=== PATIENT | female | born 1940 | race Caucasian/White ===

== ENCOUNTER 2020-04-24 01:31 | Emergency (ER) | payer OTHER ==
[~2020-04-24] VITALS: Ht 152.4 cm; Wt 71.2 kg
[~2020-04-24 01:31] MED LIST: CETI1TAB2 PO
[2020-04-24 01:32] VITALS: BP_SYST 160
--- NOTE | 2020-04-24 02:09 | NUR ---
PT BROUGHT IN BY SELF. PT STATES THAT SHE WOKE UP APPROX 20 MINUTES PRIOR TO COMING INTO ER WITH SWOLLEN TONGUE. PT STATES THAT LEFT SIDE OF TONGUE IS SWOLLEN AND CAUSES MILD PAIN. PT STATES THAT SHE HAS HAD MULTIPLE EPISODES IN HER LIFE, WITH THE LAST EPISODE BEING APPROX 4 YEARS AGO. PT STATES THAT LAST TIME SHE WAS GIVEN BENADRYL AND EPINEPHRINE, WAITED A FEW HOURS AND WENT HOME. NO BLEEDING, AIRWAY IS PATENT, NO DROOLING, NO FACIAL ASYMMETRY. PT DENIES SOB, CHEST PAIN, ANY OTHER MEDICAL COMPLAINT AT THIS TIME.
--- NOTE | 2020-04-24 02:09 | NUR ---
PT PLACED INTO HALLWAY BED 2, REPORT GIVEN TO JADE SHEARER. ALL CARE ENDORSED. SIDE RAILS UP.
--- NOTE | 2020-04-24 02:15 | NUR ---
ER at bedside examining patient.
[2020-04-24] MEDS ORDERED: DIPHENHYDRAMINE INJ 50 MG/ML VIAL IVP ONE (02:30)
[2020-04-24] MEDS ORDERED: FAMOTIDINE PF 20 MG/2 ML VIAL IVP ONE (02:30)
[2020-04-24] MEDS ORDERED: EPINEPHrine 1 MG/ML AMP IM ONE (02:30)
[2020-04-24] MEDS ORDERED: methylPREDNISolone SOD SUCC/PF 62.5 MG/ML VIAL IVP ONE (02:30)
--- NOTE | 2020-04-24 03:02 | NUR ---
LAB AT BEDSIDE FOR BLOOD DRAW.
[2020-04-24 03:12] LABS: BASOPHILS % (AUTO) 0.9 % (0.0-2.0); EOSINOPHILS # (AUTO) 0.1 K/uL (0.0-0.4); EOSINOPHILS % (AUTO) 2.5 % (0.0-4.0); HEMATOCRIT 41.2 % (36-48); HEMOGLOBIN 13.8 g/dL (12.0-16.0); LYMPHOCYTES % (AUTO) 36.3 % (20.5-51.5); MEAN CORPUSCULAR HEMOGLOBIN 30 pg (27-31); MEAN CORPUSCULAR HGB CONC 34 % (32-36); MEAN CORPUSCULAR VOLUME 88 fL (79.0-98.0); MONOCYTES # (AUTO) 0.4 K/uL (0.0-1.0); MONOCYTES % (AUTO) 6.8 % (1.7-9.3); NEUTROPHILS # (AUTO) 2.9 K/uL (1.8-7.7); NEUTROPHILS % (AUTO) 53.5 % (40.0-70.0); PLATELET COUNT (AUTO) 190 K/uL (130-430); RED BLOOD CELL COUNT(AUTO) 4.67 MIL/uL (4.2-6.2); RED CELL DISTRIBUTION WIDTH 13.5 % (9.0-15.0); WHITE BLOOD COUNT (AUTO) 5.4 K/uL (4.8-10.8)
--- NOTE | 2020-04-24 03:15 | NUR ---
# 20 gauge angiocath placed to LEFT AC. Use of asceptic technique. Opsite placed over site. Blood return noted. Flushed with 10 cc of normal saline. No evidence of infiltration noted. Patient tolerated well.
[2020-04-24 03:28] LABS: ANION GAP 11 (5-15); CALCIUM 8.4 mg/dL (8.4-11.0); CHLORIDE 105 mmol/L (98-107); GLUCOSE 106 mg/dL (70-99); POTASSIUM 3.7 mmol/L (3.5-5.1); SODIUM SERUM 141 mmol/L (136-145); UREA NITROGEN, BLOOD 15 mg/dL (8-21)
[2020-04-24 03:33] LABS: ALANINE AMINOTRANSFERASE 22 U/L (12-78); ALBUMIN 3.3 g/dL (3.4-4.8); ASPARTATE AMINOTRANSFERASE 18 U/L (10-37); TOTAL BILIRUBIN 0.4 mg/dL (0.0-1.0)
--- NOTE | 2020-04-24 03:36 | NUR ---
PATIENT MEDICATED PER MD ORDERS. PT TOLERATED WELL.
--- NOTE | 2020-04-24 04:17 | NUR ---
PT AMBULATED TO RESTROOM WITH STEADY GAIT.
[2020-04-24 05:11] VITALS: BP_SYST 162
--- NOTE | 2020-04-24 05:11 | NUR ---
Patient given written and verbal discharge instructions and verbalizes understanding. ER MD discussed with patient the results and treatment provided. Patient in stable condition. ID arm band removed. IV catheter removed intact and dressing applied, no active bleeding. Rx of PREDNISONE given. Patient educated on pain management and to follow up with PMD. Pain Scale 0/10. Opportunity for questions provided and answered. Medication side effect fact sheet provided.
== END 2020-04-24 05:11 | disposition home or self-care (01) ==
LOC: SED 01:31
DX: T78.3XXA Angioneurotic edema, initial encounter (principal); Z88.6 Allergy status to analgesic agent; X58.XXXA Exposure to other specified factors, initial encounter
CPT/HCPCS: 36415; 80053; 85025; 96372; 96374; 96375; 99291; 99292; J0171; J1200; J2930; J3490

== ENCOUNTER 2020-06-17 13:50 | Emergency (ER) | payer OTHER ==
[~2020-06-17] VITALS: Ht 152.4 cm; Wt 73.9 kg
[2020-06-17 13:50] VITALS: BP_SYST 167
[2020-06-17] MEDS: DIPHENHYDRAMINE INJ 50 MG/ML VIAL IM ONE (14:33)
[2020-06-17] MEDS: methylPREDNISolone SOD SUCC/PF 62.5 MG/ML VIAL IM ONE (14:34)
[2020-06-17] MEDS: EPINEPHrine 1 MG/ML AMP SUBCUT ONE (14:35)
[2020-06-17] MEDS ORDERED: MED4 PO (15:49)
[2020-06-17 16:00] VITALS: BP_SYST 142
== END 2020-06-17 16:00 | disposition home or self-care (01) ==
LOC: SED 13:50
DX: T78.3XXA Angioneurotic edema, initial encounter (principal); E78.5 Hyperlipidemia, unspecified; Z90.49 Acquired absence of other specified parts of digestive tract; Z90.710 Acquired absence of both cervix and uterus; Z79.899 Other long term (current) drug therapy; Z88.6 Allergy status to analgesic agent; X58.XXXA Exposure to other specified factors, initial encounter
CPT/HCPCS: 96372; 99291